=== PATIENT | female | born 1995 | race Caucasian/White ===

== ENCOUNTER 2016-10-17 18:34 | Emergency (ER) | payer OTHER ==
[~2016-10-17] VITALS: Ht 175.3 cm; Wt 100.4 kg
[~2016-10-17 18:34] MED LIST: ACET-1600 PO; HYDR-3240 PO; IBUP-1222 PO; IBUP200C8 PO; ONDA4TAB7 PO; OXYC-302 PO; PREN-3 PO
[2016-10-17 18:39] VITALS: BP 144/83
[2016-10-17] MEDS ORDERED: KETOROLAC 30 MG/1 ML IM ONE (19:00)
[2016-10-17] MEDS ORDERED: DEXAMETHASONE 4 MG TABLET PO STA (19:22)
== END 2016-10-17 19:46 | disposition home or self-care (01) ==
LOC: ED 19:33
DX: J20.8 Acute bronchitis due to other specified organisms (principal); J02.8 Acute pharyngitis due to other specified organisms; G43.909 Migraine, unspecified, not intractable, without status migrainosus
CPT/HCPCS: 71020; 93005; 96372; 99284; J1885

== ENCOUNTER 2016-11-15 16:34 | Emergency (ER) | payer OTHER ==
[~2016-11-15] VITALS: Ht 172.7 cm; Wt 103.5 kg
[2016-11-15] MEDS ORDERED: MORPHINE SULFATE 4 MG/ML, 1ML IVPush PRN (17:00)
[2016-11-15] MEDS ORDERED: ONDANSETRON 2MG/ML, 2ML IVPush ONE (17:00)
[2016-11-15] MEDS ORDERED: SODIUM CHLORIDE FLUSH 10ML SYR IVF ONE (17:00)
[2016-11-15] MEDS ORDERED: SODIUM CHLORIDE 0.9% 1,000ML IVBOLUS ONE (17:00)
[2016-11-15] MEDS ORDERED: ONDANSETRON 2MG/ML, 2ML ONE (17:11)
[2016-11-15] MEDS ORDERED: MORPHINE SULFATE 4 MG/ML, 1ML ONE (17:11)
[2016-11-15 17:49] LABS: BLOOD UREA NITROGEN 10 mg/dL (7-18)
[2016-11-15] MEDS ORDERED: FAMOTIDINE 20 MG/2 ML ONE (18:48)
[2016-11-15] MEDS ORDERED: LORazepam 2 MG/ML, 1ML ONE (19:15)
[2016-11-15] MEDS ORDERED: LORazepam 2 MG/ML, 1ML IVPush ONE (19:30)
[2016-11-15] MEDS ORDERED: FAMOTIDINE 20 MG/2 ML IVPush ONE (20:00)
[2016-11-15 20:18] LABS: GLUCOSE, CSF 49 mg/dL (40-80)
[2016-11-15 21:33] VITALS: BP 117/70
== END 2016-11-15 21:38 | disposition home or self-care (01) ==
LOC: ED 21:28
DX: R50.9 Fever, unspecified (principal); B34.9 Viral infection, unspecified; G43.909 Migraine, unspecified, not intractable, without status migrainosus; Z90.49 Acquired absence of other specified parts of digestive tract
CPT/HCPCS: 36415; 62270; 70450; 80048; 82040; 82945; 84157; 85025; 87070; 87205; 87252; 89051; 96361; 96374; 96375; 99285; J2060; J2405; J7030; S0028

== ENCOUNTER 2017-04-11 13:16 | Emergency (ER) | payer OTHER ==
[~2017-04-11] VITALS: Ht 172.7 cm; Wt 107.0 kg
[2017-04-11 13:20] VITALS: BP 142/85
[2017-04-11] MEDS ORDERED: LORazepam 2 MG/ML, 1ML IVPush STA (13:38)
[2017-04-11] MEDS ORDERED: MORPHINE SULFATE 4 MG/ML, 1ML ONE (13:44)
[2017-04-11] MEDS ORDERED: LORazepam 2 MG/ML, 1ML ONE (13:45)
[2017-04-11] MEDS ORDERED: SODIUM CHLORIDE 0.9% 1,000ML IVBOLUS ONE (14:00)
[2017-04-11] MEDS ORDERED: MORPHINE SULFATE 4 MG/ML, 1ML IVPush PRN (14:00)
[2017-04-11] MEDS ORDERED: SODIUM CHLORIDE FLUSH 10ML SYR IVF ONE (14:00)
[2017-04-11 14:04] LABS: HEMATOCRIT 44.1 % (34.6-47.8); HEMOGLOBIN 15.3 g/dL (11.7-16.4); WHITE BLOOD COUNT 6.9 x10^3/uL (3.4-10)
[2017-04-11 14:12] LABS: BLOOD UREA NITROGEN 9 mg/dL (7-18)
[2017-04-11] MEDS ORDERED: ACETAMINOPHEN 325 MG TABLET ONE (14:39)
[2017-04-11] MEDS ORDERED: ACETAMINOPHEN 500 MG TABLET ONE (14:42)
[2017-04-11] MEDS ORDERED: ACETAMINOPHEN 325 MG TABLET PO ONE (15:00)
== END 2017-04-11 16:52 | disposition home or self-care (01) ==
LOC: ED 15:13
DX: N92.0 Excessive and frequent menstruation with regular cycle (principal); N92.1 Excessive and frequent menstruation with irregular cycle; R10.2 Pelvic and perineal pain; Z90.49 Acquired absence of other specified parts of digestive tract
CPT/HCPCS: 36415; 76830; 80048; 81001; 82040; 84703; 85025; 87086; 96361; 96374; 96375; 99285; J2060; J7030

== ENCOUNTER 2017-06-20 23:27 | Emergency (ER) | payer OTHER ==
[~2017-06-20] VITALS: Ht 172.7 cm; Wt 109.2 kg
[2017-06-20 23:28] VITALS: BP 129/87
[2017-06-21] MEDS ORDERED: DICYCLOMINE 10 MG/ML, 2ML IM ONE
[2017-06-21] MEDS ORDERED: ONDANSETRON ODT 8 MG PO ONE
[2017-06-21 00:09] LABS: HEMATOCRIT 42.1 % (34.6-47.8); HEMOGLOBIN 14.5 g/dL (11.7-16.4)
[2017-06-21 00:21] LABS: ASPARTATE AMINO TRANSFERASE 14 U/L (15-37); BLOOD UREA NITROGEN 8 mg/dL (7-18)
== END 2017-06-21 01:12 | disposition home or self-care (01) ==
LOC: ED 06-21 00:12
DX: R10.13 Epigastric pain (principal); R11.2 Nausea with vomiting, unspecified; R19.7 Diarrhea, unspecified; G43.909 Migraine, unspecified, not intractable, without status migrainosus; Z90.49 Acquired absence of other specified parts of digestive tract
CPT/HCPCS: 36415; 80053; 80307; 81001; 83690; 84703; 85025; 87086; 96372; 99284; J0500; Q0162; G0479

== ENCOUNTER 2017-06-26 22:53 | Inpatient (IN) | payer OTHER ==
[~2017-06-26] VITALS: Ht 172.7 cm; Wt 105.3 kg
[2017-06-26 23:29] LABS: HEMATOCRIT 39.8 % (34.6-47.8); HEMOGLOBIN 13.7 g/dL (11.7-16.4); WHITE BLOOD COUNT 6.5 x10^3/uL (3.4-10)
[2017-06-26] MEDS ORDERED: CHARCOAL/SORBITOL 50 GM/240 ML PO ONE (23:30)
[2017-06-26 23:41] LABS: ASPARTATE AMINO TRANSFERASE 16 U/L (15-37); BLOOD UREA NITROGEN 10 mg/dL (7-18)
[2017-06-26] MEDS ORDERED: CHARCOAL/SORBITOL 50 GM/240 ML ONE (23:45)
[2017-06-26 23:52] LABS: ACETAMINOPHEN 183 mcg/mL (10-30)
[2017-06-27 00:07] LABS: DAU SCREEN DISCLAIMER
[2017-06-27] MEDS ORDERED: ACETYLCYSTEINE IV ONE ×4 (01:00→07:00)
[2017-06-27] MEDS ORDERED: DEXTROSE 5% IV ONE ×4 (01:00→07:00)
[2017-06-27] MEDS ORDERED: ONDANSETRON 2MG/ML, 2ML IVPush ONE (01:00)
[2017-06-27] MEDS ORDERED: ONDANSETRON 2MG/ML, 2ML IVPush PRN (02:00)
[2017-06-27] MEDS ORDERED: METOCLOPRAMIDE 5 MG/ML, 2ML IVPush PRN (02:00)
[2017-06-27] MEDS: SODIUM CHLORIDE 0.9% 1,000 ML IV SCH ×4 (03:08→23:22)
[2017-06-27 08:03] VITALS: BP 129/80
[2017-06-27] MEDS: FAMOTIDINE 20 MG/2 ML IVPush SCH ×2 (09:32→20:48)
[2017-06-27] MEDS: HYDROmorphone 2 MG/ML, 1ML IVPush PRN ×2 (09:43→15:39)
[2017-06-27 13:21] VITALS: BP 134/91
[2017-06-27 19:58] VITALS: BP 114/67
[2017-06-27] MEDS: BUTALB/APAP/CAFFEINE 50MG/325MG/40MG PO PRN (20:48)
[2017-06-28] MEDS: LORazepam 2 MG/ML, 1ML IVPush PRN ×2 (00:35→15:50)
[2017-06-28 01:30] VITALS: BP 132/75
[2017-06-28 05:49] LABS: BLOOD UREA NITROGEN 4 mg/dL (7-18)
[2017-06-28] MEDS: SODIUM CHLORIDE 0.9% 1,000 ML IV SCH ×2 (05:55→12:35)
[2017-06-28 06:01] LABS: ASPARTATE AMINO TRANSFERASE 13 U/L (15-37)
[2017-06-28 06:05] LABS: HEMATOCRIT 33.9 % (34.6-47.8); WHITE BLOOD COUNT 4.6 x10^3/uL (3.4-10)
[2017-06-28 07:00] VITALS: BP_SYST 106; BP_SYST 113; BP_DIAS 61; BP_DIAS 70
[2017-06-28] MEDS: FAMOTIDINE 20 MG TABLET PO SCH ×2 (09:17→19:41)
[2017-06-28] MEDS: BUTALB/APAP/CAFFEINE 50MG/325MG/40MG PO PRN (10:08)
[2017-06-28 14:26] VITALS: BP 145/83
[2017-06-28] MEDS ORDERED: POTASSIUM CHLORIDE 20 MEQ TAB.ER.PRT PO ONE (15:00)
[2017-06-28 20:00] VITALS: BP 118/75
[2017-06-28] MEDS ORDERED: IBUPROFEN 200 MG TABLET PO PRN (22:00)
[2017-06-29 02:00] VITALS: BP 108/72
[2017-06-29 06:09] LABS: BLOOD UREA NITROGEN 6 mg/dL (7-18)
[2017-06-29 06:15] LABS: ASPARTATE AMINO TRANSFERASE 10 U/L (15-37)
[2017-06-29] MEDS ORDERED: POTASSIUM CHLORIDE 20 MEQ TAB.ER.PRT PO ONE (07:00)
[2017-06-29 07:24] VITALS: BP 110/75
[2017-06-29] MEDS: FAMOTIDINE 20 MG TABLET PO SCH (09:20)
[2017-06-29] MEDS ORDERED: LORazepam 1MG TABLET PO PRN (13:00)
== END 2017-06-29 18:24 | DRG 918 ==
LOC: ED 23:31 → EDIP 06-27 01:19 → 4NOR 06-27 01:55 → 2N 06-29 11:16
PROVIDERS: ADMIT Hospitalist; ATTEND Hospitalist
DX: T39.1X2A Poisoning by 4-Aminophenol derivatives, intentional self-harm, initial encounter (principal); E87.6 Hypokalemia; F60.3 Borderline personality disorder; G89.29 Other chronic pain; F32.9 Major depressive disorder, single episode, unspecified; G43.909 Migraine, unspecified, not intractable, without status migrainosus; Z90.49 Acquired absence of other specified parts of digestive tract; Z90.89 Acquired absence of other organs
CPT/HCPCS: 36415; 80053; 80307; 80329; 83735; 84100; 84443; 84703; 85025; 85610; 85730; 93005; 96374; 96375; J0132; J1170; J2405; J7060; J7070; G0479; G0480; J2060; J7030; S0028

== ENCOUNTER 2017-10-08 13:43 | Emergency (ER) | payer OTHER ==
[~2017-10-08] VITALS: Ht 172.7 cm; Wt 108.4 kg
[2017-10-08 14:59] LABS: BASOPHILS # (AUTO) 0.04 x10^3/uL (0-0.1); BASOPHILS % (AUTO) 0 % (0-1); EOSINOPHILS # (AUTO) 0.02 x10^3/uL (0-0.4); EOSINOPHILS % (AUTO) 0 % (1-7); LYMPHOCYTES # (AUTO) 0.98 x10^3/uL (1-3.4); LYMPHOCYTES % (AUTO) 8 % (22-44); MD NO; MEAN CORPUSCULAR HEMOGLOBIN 29.7 pg (27.0-34.8); MEAN CORPUSCULAR HGB CONC 34.2 g/dL (32.4-35.8); MEAN CORPUSCULAR VOLUME 86.8 fL (80-100); MEAN PLATELET VOLUME 7.5 fL (7.4-10.4); MONOCYTES # (AUTO) 0.46 x10^3/uL (0.2-0.8); MONOCYTES % (AUTO) 4 % (2-9); NEUTROPHILS # (AUTO) 11.05 x10^3/uL (1.8-6.8); NEUTROPHILS % (AUTO) 88 % (42-75); PLATELET COUNT 302 x10^3/uL (130-400); RED BLOOD COUNT 4.85 x10^6/uL (3.82-5.3); RED CELL DISTRIBUTION WIDTH 13.2 % (9.6-15.2)
[2017-10-08 15:07] LABS: ALBUMIN 3.9 g/dL (3.4-5.0); ANION GAP 6 mmol/L (5-15); CALCIUM 8.8 mg/dL (8.5-10.1); CHLORIDE 108 mmol/L (98-107); CREATININE 0.69 mg/dL (0.55-1.02)
[2017-10-08] MEDS ORDERED: ONDANSETRON 2MG/ML, 2ML ONE (15:57)
[2017-10-08] MEDS ORDERED: ONDANSETRON 2MG/ML, 2ML IVPush ONE (16:00)
[2017-10-08] MEDS ORDERED: SODIUM CHLORIDE 0.9% 1,000ML IVBOLUS ONE (16:00)
[2017-10-08] MEDS ORDERED: SODIUM CHLORIDE FLUSH 10ML SYR IVF ONE (16:00)
[2017-10-08 17:43] VITALS: BP 107/67
== END 2017-10-08 17:46 | disposition home or self-care (01) ==
LOC: ED 16:29
DX: O21.1 Hyperemesis gravidarum with metabolic disturbance (principal); Z3A.21 21 weeks gestation of pregnancy; G43.909 Migraine, unspecified, not intractable, without status migrainosus; I73.00 Raynaud's syndrome without gangrene; E86.0 Dehydration; O99.352 Diseases of the nervous system complicating pregnancy, second trimester; F32.9 Major depressive disorder, single episode, unspecified; F41.9 Anxiety disorder, unspecified
CPT/HCPCS: 36415; 76801; 80048; 82040; 84702; 85025; 96361; 96374; 99285; J2405; J7030

== ENCOUNTER 2017-10-13 11:54 | Emergency (ER) | payer OTHER ==
[~2017-10-13] VITALS: Ht 172.7 cm; Wt 106.5 kg
[2017-10-13] MEDS ORDERED: ONDANSETRON 2MG/ML, 2ML ONE (12:59)
[2017-10-13] MEDS ORDERED: SODIUM CHLORIDE 0.9% 1,000ML IVBOLUS ONE (13:00)
[2017-10-13] MEDS ORDERED: SODIUM CHLORIDE 0.9% 1,000 ML IV ONE (13:00)
[2017-10-13] MEDS ORDERED: ONDANSETRON ODT 4 MG PO ONE (13:00)
[2017-10-13] MEDS ORDERED: SODIUM CHLORIDE FLUSH 10ML SYR IVF ONE (13:30)
[2017-10-13] MEDS ORDERED: METOCLOPRAMIDE 5 MG/ML, 2ML IVPush ONE (13:30)
[2017-10-13] MEDS ORDERED: METOCLOPRAMIDE 5 MG/ML, 2ML ONE (13:31)
[2017-10-13 13:36] LABS: BASOPHILS # (AUTO) 0.07 x10^3/uL (0-0.1); BASOPHILS % (AUTO) 1 % (0-1); EOSINOPHILS # (AUTO) 0.03 x10^3/uL (0-0.4); EOSINOPHILS % (AUTO) 0 % (1-7); LYMPHOCYTES # (AUTO) 1.68 x10^3/uL (1-3.4); LYMPHOCYTES % (AUTO) 18 % (22-44); MD NO; MEAN CORPUSCULAR HGB CONC 33.9 g/dL (32.4-35.8); MEAN CORPUSCULAR VOLUME 85.4 fL (80-100); MEAN PLATELET VOLUME 7.3 fL (7.4-10.4); MONOCYTES # (AUTO) 0.52 x10^3/uL (0.2-0.8); MONOCYTES % (AUTO) 6 % (2-9); NEUTROPHILS # (AUTO) 6.88 x10^3/uL (1.8-6.8); NEUTROPHILS % (AUTO) 75 % (42-75); PLATELET COUNT 342 x10^3/uL (130-400); RED BLOOD COUNT 4.95 x10^6/uL (3.82-5.3); RED CELL DISTRIBUTION WIDTH 12.6 % (9.6-15.2)
[2017-10-13 13:43] LABS: CULTURE INDICATED? YES; MICROSCOPIC INDICATED
[2017-10-13 13:46] LABS: ALANINE AMINOTRANSFERASE 80 U/L (12-78); ALBUMIN 3.9 g/dL (3.4-5.0); ANION GAP 9 mmol/L (5-15); CALCIUM 8.9 mg/dL (8.5-10.1); CHLORIDE 105 mmol/L (98-107)
[2017-10-13 14:04] LABS: ALKALINE PHOSPHATASE 69 U/L (45-117); BILIRUBIN,TOTAL 0.8 mg/dL (0.2-1.0); CREATININE 0.77 mg/dL (0.55-1.02); TOTAL PROTEIN 7.9 g/dL (6.4-8.2)
[2017-10-13 15:29] VITALS: BP 106/56
== END 2017-10-13 15:31 | disposition home or self-care (01) ==
LOC: ED 14:33
DX: O21.0 Mild hyperemesis gravidarum (principal); O26.892 Other specified pregnancy related conditions, second trimester; O99.282 Endocrine, nutritional and metabolic diseases complicating pregnancy, second trimester; O99.352 Diseases of the nervous system complicating pregnancy, second trimester; O99.412 Diseases of the circulatory system complicating pregnancy, second trimester; Z3A.21 21 weeks gestation of pregnancy; Z90.49 Acquired absence of other specified parts of digestive tract; I73.00 Raynaud's syndrome without gangrene; G43.909 Migraine, unspecified, not intractable, without status migrainosus; E86.9 Volume depletion, unspecified
CPT/HCPCS: 36415; 76801; 80053; 81001; 84702; 85025; 87086; 93005; 96361; 96374; 99285; J2765; J7030

== ENCOUNTER 2017-10-30 08:55 | Emergency (ER) | payer OTHER ==
[~2017-10-30] VITALS: Ht 172.7 cm; Wt 103.0 kg
[2017-10-30] MEDS ORDERED: SODIUM CHLORIDE 0.9% 1,000ML IVBOLUS ONE (09:30)
[2017-10-30] MEDS ORDERED: SODIUM CHLORIDE FLUSH 10ML SYR IVF ONE (09:30)
[2017-10-30] MEDS ORDERED: METOCLOPRAMIDE 5 MG/ML, 2ML IVPush ONE (09:30)
[2017-10-30 09:42] LABS: BASOPHILS # (AUTO) 0.03 x10^3/uL (0-0.1); BASOPHILS % (AUTO) 0 % (0-1); EOSINOPHILS # (AUTO) 0.06 x10^3/uL (0-0.4); EOSINOPHILS % (AUTO) 1 % (1-7); LYMPHOCYTES # (AUTO) 1.26 x10^3/uL (1-3.4); LYMPHOCYTES % (AUTO) 15 % (22-44); MD NO; MEAN CORPUSCULAR HEMOGLOBIN 29.6 pg (27.0-34.8); MEAN CORPUSCULAR HGB CONC 34.5 g/dL (32.4-35.8); MEAN CORPUSCULAR VOLUME 85.8 fL (80-100); MEAN PLATELET VOLUME 7.4 fL (7.4-10.4); MONOCYTES % (AUTO) 4 % (2-9); NEUTROPHILS # (AUTO) 6.78 x10^3/uL (1.8-6.8); NEUTROPHILS % (AUTO) 80 % (42-75); PLATELET COUNT 304 x10^3/uL (130-400); RED BLOOD COUNT 4.78 x10^6/uL (3.82-5.3); RED CELL DISTRIBUTION WIDTH 12.7 % (9.6-15.2)
[2017-10-30 09:51] LABS: ALANINE AMINOTRANSFERASE 32 U/L (12-78); ALBUMIN 3.6 g/dL (3.4-5.0); ANION GAP 11 mmol/L (5-15); CALCIUM 9.2 mg/dL (8.5-10.1); CHLORIDE 105 mmol/L (98-107); CREATININE 0.72 mg/dL (0.55-1.02)
[2017-10-30 09:53] LABS: ALKALINE PHOSPHATASE 66 U/L (45-117); BILIRUBIN,TOTAL 0.7 mg/dL (0.2-1.0); TOTAL PROTEIN 7.8 g/dL (6.4-8.2)
[2017-10-30] MEDS ORDERED: METOCLOPRAMIDE 5 MG/ML, 2ML ONE (10:11)
[2017-10-30 11:33] LABS: CULTURE INDICATED? NO; MICROSCOPIC NOT IND
[2017-10-30 11:55] VITALS: BP 101/58
== END 2017-10-30 11:56 | disposition home or self-care (01) ==
LOC: ED 10:56
DX: O26.891 Other specified pregnancy related conditions, first trimester (principal); O21.9 Vomiting of pregnancy, unspecified; O21.0 Mild hyperemesis gravidarum; Z3A.09 9 weeks gestation of pregnancy; R55 Syncope and collapse
CPT/HCPCS: 36415; 80053; 81003; 85025; 93005; 96361; 96374; 99285; J2765; J7030

== ENCOUNTER 2017-12-25 22:44 | Emergency (ER) | payer OTHER ==
[~2017-12-25] VITALS: Ht 172.7 cm; Wt 108.9 kg
[~2017-12-25 22:44] MED LIST changes: +ONDA4TAB10 PO; +PREN1TAB60 PO
[2017-12-25] MEDS ORDERED: ONDANSETRON 2MG/ML, 2ML ONE (23:12)
[2017-12-25 23:25] VITALS: BP 107/54
[2017-12-25] MEDS ORDERED: SODIUM CHLORIDE 0.9% 1,000ML IVBOLUS ONE (23:30)
[2017-12-25] MEDS ORDERED: ONDANSETRON 2MG/ML, 2ML IVPush ONE (23:30)
[2017-12-25 23:36] LABS: ANION GAP 10 mmol/L (5-15); CALCIUM 8.7 mg/dL (8.5-10.1); CHLORIDE 110 mmol/L (98-107); CREATININE 0.59 mg/dL (0.55-1.02)
[2017-12-25 23:39] LABS: MICROSCOPIC NOT IND
[2017-12-25 23:45] LABS: CULTURE INDICATED? NO
== END 2017-12-26 00:08 | disposition home or self-care (01) ==
LOC: ED 23:52
DX: O26.892 Other specified pregnancy related conditions, second trimester (principal); Z3A.18 18 weeks gestation of pregnancy; R11.2 Nausea with vomiting, unspecified; E87.6 Hypokalemia; G43.909 Migraine, unspecified, not intractable, without status migrainosus
CPT/HCPCS: 36415; 80048; 81003; 96374; 99284; J2405; J7030

== ENCOUNTER 2018-02-13 06:48 | Outpatient (CLI) | payer OTHER ==
[~2018-02-13] VITALS: Ht 172.7 cm; Wt 103.0 kg
[2018-02-13] MEDS ORDERED: ONDANSETRON 2MG/ML, 2ML ONE (07:07)
[2018-02-13 07:17] LABS: MICROSCOPIC INDICATED
[2018-02-13] MEDS ORDERED: D5%-LACTATED RINGERS 1,000 ML IV SCH (07:30)
[2018-02-13] MEDS ORDERED: ONDANSETRON 2MG/ML, 2ML IVPush ONE (07:30)
[2018-02-13 07:59] LABS: ALBUMIN 2.7 g/dL (3.4-5.0); ANION GAP 12 mmol/L (5-15); CALCIUM 8.1 mg/dL (8.5-10.1); CHLORIDE 108 mmol/L (98-107)
[2018-02-13 08:02] LABS: ALANINE AMINOTRANSFERASE 18 U/L (12-78); ALKALINE PHOSPHATASE 71 U/L (45-117); BILIRUBIN,TOTAL 0.6 mg/dL (0.2-1.0); CREATININE 0.49 mg/dL (0.55-1.02); TOTAL PROTEIN 6.6 g/dL (6.4-8.2)
== END 2018-02-13 09:52 | disposition home or self-care (01) ==
LOC: LDOP 06:48
PROVIDERS: ATTEND Obstetrics & Gynecology Gynecology
DX: O21.2 Late vomiting of pregnancy (principal); O26.892 Other specified pregnancy related conditions, second trimester; O62.9 Abnormality of forces of labor, unspecified; Z3A.27 27 weeks gestation of pregnancy
CPT/HCPCS: 36415; 59025; 80053; 81001; 87086; 96360; 96366; 96374; 99201; J2405; J7121; G0463

== ENCOUNTER 2018-02-13 20:12 | Outpatient (CLI) | payer OTHER ==
[~2018-02-13] VITALS: Ht 172.7 cm; Wt 105.0 kg
[2018-02-13 20:46] LABS: BASOPHILS % (AUTO) 0 % (0-1); EOSINOPHILS # (AUTO) 0.02 x10^3/uL (0-0.4); EOSINOPHILS % (AUTO) 0 % (1-7); LYMPHOCYTES # (AUTO) 0.54 x10^3/uL (1-3.4); LYMPHOCYTES % (AUTO) 8 % (22-44); MD NO; MEAN CORPUSCULAR HGB CONC 33.7 g/dL (32.4-35.8); MEAN CORPUSCULAR VOLUME 89.2 fL (80-100); MEAN PLATELET VOLUME 7.3 fL (7.4-10.4); MONOCYTES # (AUTO) 0.31 x10^3/uL (0.2-0.8); MONOCYTES % (AUTO) 5 % (2-9); NEUTROPHILS # (AUTO) 5.89 x10^3/uL (1.8-6.8); NEUTROPHILS % (AUTO) 87 % (42-75); PLATELET COUNT 265 x10^3/uL (130-400); RED BLOOD COUNT 4.12 x10^6/uL (3.82-5.3)
[2018-02-13 20:53] LABS: MICROSCOPIC INDICATED
[2018-02-13 20:54] LABS: ALBUMIN 2.8 g/dL (3.4-5.0); ANION GAP 7 mmol/L (5-15); CALCIUM 8.4 mg/dL (8.5-10.1); CHLORIDE 107 mmol/L (98-107)
[2018-02-13 20:57] LABS: ALANINE AMINOTRANSFERASE 19 U/L (12-78); ALKALINE PHOSPHATASE 73 U/L (45-117); BILIRUBIN,TOTAL 0.5 mg/dL (0.2-1.0); CREATININE 0.51 mg/dL (0.55-1.02); TOTAL PROTEIN 6.8 g/dL (6.4-8.2)
[2018-02-13] MEDS ORDERED: ONDANSETRON 2MG/ML, 2ML ONE (21:09)
[2018-02-13] MEDS ORDERED: ONDANSETRON 2MG/ML, 2ML IVPush PRN (21:30)
[2018-02-13] MEDS ORDERED: D5%-LACTATED RINGERS 1,000 ML IV SCH ×2 (21:30→21:51)
[2018-02-13] MEDS ORDERED: LOPERAMIDE 2 MG CAPSULE PO ONE (21:30)
[2018-02-13 21:55] LABS: CLOSTRIDIUM DIFFICILE ANTIGEN NEGATIVE; CLOSTRIDIUM DIFFICILE TOXIN NEGATIVE (Negative)
== END 2018-02-13 22:35 | disposition home or self-care (01) ==
LOC: LDOP 20:12
PROVIDERS: ATTEND Obstetrics & Gynecology Gynecology
DX: O21.2 Late vomiting of pregnancy (principal); O26.892 Other specified pregnancy related conditions, second trimester; R19.7 Diarrhea, unspecified; Z3A.27 27 weeks gestation of pregnancy
CPT/HCPCS: 36415; 59025; 80053; 81001; 85025; 87086; 87324; 96360; 96361; 96374; 99211; J2405; J7121; G0463

== ENCOUNTER 2018-04-05 10:05 | Emergency (ER) | payer OTHER ==
[~2018-04-05] VITALS: Ht 172.7 cm; Wt 107.0 kg
[2018-04-05] MEDS ORDERED: ACETAMINOPHEN 500 MG TABLET PO ONE (10:30)
[2018-04-05] MEDS ORDERED: ACETAMINOPHEN 500 MG TABLET ONE (10:52)
[2018-04-05 11:49] VITALS: BP 113/57
== END 2018-04-05 11:50 | disposition home or self-care (01) ==
LOC: ED 11:07
DX: R07.89 Other chest pain (principal)
CPT/HCPCS: 71045; 93005; 99284

== ENCOUNTER 2018-04-18 11:03 | Outpatient (CLI) | payer OTHER ==
[~2018-04-18] VITALS: Ht 175.3 cm; Wt 111.3 kg
[2018-04-18 11:18] VITALS: BP 118/66
== END 2018-04-18 12:58 | disposition home or self-care (01) ==
LOC: LDOP 11:03
PROVIDERS: ATTEND Obstetrics & Gynecology Gynecology
DX: O60.03 Preterm labor without delivery, third trimester (principal); O62.9 Abnormality of forces of labor, unspecified; Z3A.37 37 weeks gestation of pregnancy; Z23 Encounter for immunization
CPT/HCPCS: 59025; 90656; 99211; G0463

== ENCOUNTER 2018-04-28 19:25 | Outpatient (CLI) | payer OTHER ==
[~2018-04-28] VITALS: Ht 172.7 cm; Wt 113.6 kg
[2018-04-28 19:38] VITALS: BP 128/65
[2018-04-28] MEDS ORDERED: ZOLPIDEM 5MG TABLET ONE (20:20)
[2018-04-28] MEDS ORDERED: ZOLPIDEM 5MG TABLET PO SCH (21:00)
== END 2018-04-28 20:25 | disposition home or self-care (01) ==
LOC: LDOP 19:25
PROVIDERS: ATTEND Obstetrics & Gynecology Gynecology
DX: O42.92 Full-term premature rupture of membranes, unspecified as to length of time between rupture and onset of labor (principal); Z3A.37 37 weeks gestation of pregnancy
CPT/HCPCS: 59025; 89060; 99211; G0463; Q0114

== ENCOUNTER 2018-05-05 14:13 | Outpatient (CLI) | payer OTHER ==
[~2018-05-05] VITALS: Ht 172.7 cm; Wt 109.0 kg
[2018-05-05 14:31] VITALS: BP 112/62
== END 2018-05-05 15:55 | disposition home or self-care (01) ==
LOC: LDOP 14:13
PROVIDERS: ATTEND Obstetrics & Gynecology Gynecology
DX: O36.8130 Decreased fetal movements, third trimester, not applicable or unspecified (principal); Z3A.38 38 weeks gestation of pregnancy
CPT/HCPCS: 59025; 76819; 99211; G0463

== ENCOUNTER 2018-05-08 07:20 | Outpatient (CLI) | payer OTHER ==
[~2018-05-08] VITALS: Ht 172.7 cm; Wt 119.5 kg
[2018-05-08 08:42] LABS: MICROSCOPIC NOT IND
[2018-05-08 08:50] LABS: BASOPHILS # (AUTO) 0.06 x10^3/uL (0-0.1); BASOPHILS % (AUTO) 1 % (0-1); EOSINOPHILS # (AUTO) 0.07 x10^3/uL (0-0.4); EOSINOPHILS % (AUTO) 1 % (1-7); LYMPHOCYTES # (AUTO) 1.03 x10^3/uL (1-3.4); LYMPHOCYTES % (AUTO) 9 % (22-44); MD NO; MEAN CORPUSCULAR HEMOGLOBIN 29.1 pg (27.0-34.8); MEAN CORPUSCULAR HGB CONC 33.8 g/dL (32.4-35.8); MEAN CORPUSCULAR VOLUME 86.3 fL (80-100); MEAN PLATELET VOLUME 7.4 fL (7.4-10.4); MONOCYTES # (AUTO) 0.51 x10^3/uL (0.2-0.8); MONOCYTES % (AUTO) 5 % (2-9); NEUTROPHILS # (AUTO) 9.46 x10^3/uL (1.8-6.8); NEUTROPHILS % (AUTO) 85 % (42-75); PLATELET COUNT 305 x10^3/uL (130-400); RED BLOOD COUNT 4.29 x10^6/uL (3.82-5.3); RED CELL DISTRIBUTION WIDTH 14.1 % (9.6-15.2)
[2018-05-08] MEDS ORDERED: PLEASE ENTER HEIGHT AND WEIGHT MC SCH (09:00)
[2018-05-08] MEDS ORDERED: MAALOX/HYOSCYAMINE/LIDOCAINE 45 ML BTL PO ONE (09:00)
[2018-05-08 09:02] LABS: ALANINE AMINOTRANSFERASE 15 U/L (12-78); ALBUMIN 2.4 g/dL (3.4-5.0); ANION GAP 10 mmol/L (5-15); CALCIUM 9.3 mg/dL (8.5-10.1); CHLORIDE 109 mmol/L (98-107); CREATININE 0.58 mg/dL (0.55-1.02)
[2018-05-08 09:04] LABS: ALKALINE PHOSPHATASE 137 U/L (45-117); BILIRUBIN,TOTAL 0.4 mg/dL (0.2-1.0); TOTAL PROTEIN 6.4 g/dL (6.4-8.2)
[2018-05-08 09:23] VITALS: BP 121/65
== END 2018-05-08 11:30 | disposition home or self-care (01) ==
LOC: LDOP 07:20
PROVIDERS: ATTEND Obstetrics & Gynecology Gynecology
DX: O42.92 Full-term premature rupture of membranes, unspecified as to length of time between rupture and onset of labor (principal); Z3A.38 38 weeks gestation of pregnancy
CPT/HCPCS: 36415; 59025; 80053; 81003; 83690; 84112; 84550; 85025; 87086; 99211; G0463

== ENCOUNTER 2018-05-15 09:45 | Inpatient (IN) | payer OTHER ==
[~2018-05-15] VITALS: Ht 172.7 cm; Wt 119.1 kg
[2018-05-15] MEDS ORDERED: LACTATED RINGERS 1,000 ML IV SCH ×2 (10:04→10:30)
[2018-05-15] MEDS ORDERED: METOCLOPRAMIDE 5 MG/ML, 2ML IV ONE (10:30)
[2018-05-15] MEDS ORDERED: SODIUM CITRATE/CITRIC ACID 30 ML UDC PO ONE (10:30)
[2018-05-15] MEDS ORDERED: LACTATED RINGERS 1,000 ML IVBOLUS ONE (10:30)
[2018-05-15 10:48] LABS: BASOPHILS # (AUTO) 0.04 x10^3/uL (0-0.1); BASOPHILS % (AUTO) 0 % (0-1); EOSINOPHILS # (AUTO) 0.04 x10^3/uL (0-0.4); EOSINOPHILS % (AUTO) 0 % (1-7); LYMPHOCYTES # (AUTO) 1.62 x10^3/uL (1-3.4); LYMPHOCYTES % (AUTO) 17 % (22-44); MD NO; MEAN CORPUSCULAR HEMOGLOBIN 29.4 pg (27.0-34.8); MEAN CORPUSCULAR HGB CONC 33.9 g/dL (32.4-35.8); MEAN CORPUSCULAR VOLUME 86.8 fL (80-100); MEAN PLATELET VOLUME 7.5 fL (7.4-10.4); MONOCYTES # (AUTO) 0.46 x10^3/uL (0.2-0.8); MONOCYTES % (AUTO) 5 % (2-9); NEUTROPHILS # (AUTO) 7.32 x10^3/uL (1.8-6.8); NEUTROPHILS % (AUTO) 77 % (42-75); PLATELET COUNT 270 x10^3/uL (130-400); RED BLOOD COUNT 4.06 x10^6/uL (3.82-5.3); RED CELL DISTRIBUTION WIDTH 14.4 % (9.6-15.2)
[2018-05-15 11:00] VITALS: BP 138/74
[2018-05-15] MEDS ORDERED: SODIUM CITRATE/CITRIC ACID 30 ML UDC ONE (11:33)
[2018-05-15] MEDS ORDERED: OXYTOCIN 30U/ 0.9% NaCL 500ML 500 ML ONE (11:33)
[2018-05-15] MEDS ORDERED: METOCLOPRAMIDE 5 MG/ML, 2ML ONE (11:33)
[2018-05-15] MEDS ORDERED: NEWBORN KIT ONE (11:33)
[2018-05-15] MEDS ORDERED: FENTANYL PF 100 MCG/2ML ONE (11:36)
[2018-05-15] MEDS ORDERED: KETOROLAC 30 MG/1 ML ONE (11:36)
[2018-05-15] MEDS ORDERED: OXYTOCIN 10 UNITS/ML, 1ML ONE (11:36)
[2018-05-15] MEDS ORDERED: EPHEDRINE 50 MG/ML, 1ML ONE (11:36)
[2018-05-15] MEDS ORDERED: CEFAZOLIN 1,000 MG ONE (11:36)
[2018-05-15] MEDS: OXYTOCIN 30U/ 0.9% NaCL 500ML 500 ML IV SCH ×4 (12:21→22:21)
[2018-05-15] MEDS: LACTATED RINGERS 1,000 ML IV SCH ×4 (12:21→22:21)
[2018-05-15] MEDS ORDERED: DIPH,PERTUSS(ACELL),TET VAC/PF NC IM-VACC PRN (12:30)
[2018-05-15] MEDS ORDERED: morphine SULFATE 10 MG/ML, 1ML IVPush PRN (12:30)
[2018-05-15] MEDS ORDERED: RHOGAM FROM BLOOD BANK 1 NOTE EA IM/IV ONE (12:30)
[2018-05-15] MEDS ORDERED: MEASLES,MUMPS&RUBELLA VACC/PF 0.5 ML SQ-VACC PRN (12:30)
[2018-05-15] MEDS ORDERED: MISOPROSTOL 200 MCG TABLET PR PRN (12:30)
[2018-05-15] MEDS ORDERED: ONDANSETRON 2MG/ML, 2ML IV PRN ×2 (12:30→14:00)
[2018-05-15] MEDS ORDERED: CALCIUM CARBONATE 500 MG TAB.CHEW PO PRN (12:30)
[2018-05-15] MEDS ORDERED: OXYcodone/APAP 5/325MG TABLET PO PRN (12:30)
[2018-05-15] MEDS ORDERED: SIMETHICONE 80 MG CHEW TAB PO PRN (12:30)
[2018-05-15] MEDS ORDERED: DIPHENHYDRAMINE 50 MG/ML, 1ML IVPush PRN (14:00)
[2018-05-15] MEDS ORDERED: FENTANYL PF 100 MCG/2ML IV PRN (14:00)
[2018-05-15] MEDS ORDERED: MORPHINE SULFATE 4 MG/ML, 1ML IVPush PRN (14:00)
[2018-05-15] MEDS ORDERED: PROMETHAZINE 25 MG/ML, 1ML IV PRN (14:00)
[2018-05-15] MEDS ORDERED: MEPERIDINE/PF 25MG/0.5ML IVPush PRN (14:00)
[2018-05-15] MEDS ORDERED: OXYcodone 5 MG/5 ML ORAL.SOL UDC PO PRN (14:00)
[2018-05-15] MEDS ORDERED: OXYcodone IR 5MG TABLET ONE (15:08)
[2018-05-15] MEDS: OXYcodone IR 5MG TABLET PO PRN ×2 (15:09→21:50)
[2018-05-15 16:00] VITALS: BP 118/73
[2018-05-15] MEDS: KETOROLAC 30 MG/1 ML IV SCH ×2 (19:19→19:30)
[2018-05-15 20:00] VITALS: BP 109/65
[2018-05-15] MEDS ORDERED: MEPERIDINE/PF 50 MG/ML IM ONE (21:30)
[2018-05-15 21:33] LABS: BASOPHILS # (AUTO) 0.05 x10^3/uL (0-0.1); BASOPHILS % (AUTO) 0 % (0-1); EOSINOPHILS # (AUTO) 0.01 x10^3/uL (0-0.4); EOSINOPHILS % (AUTO) 0 % (1-7); LYMPHOCYTES % (AUTO) 16 % (22-44); MD NO; MEAN CORPUSCULAR HEMOGLOBIN 29.3 pg (27.0-34.8); MEAN CORPUSCULAR VOLUME 86.2 fL (80-100); MEAN PLATELET VOLUME 7.4 fL (7.4-10.4); MONOCYTES # (AUTO) 0.68 x10^3/uL (0.2-0.8); MONOCYTES % (AUTO) 6 % (2-9); NEUTROPHILS % (AUTO) 78 % (42-75); PLATELET COUNT 230 x10^3/uL (130-400); RED BLOOD COUNT 3.77 x10^6/uL (3.82-5.3); RED CELL DISTRIBUTION WIDTH 14.3 % (9.6-15.2)
[2018-05-15] MEDS ORDERED: MEPERIDINE/PF 50 MG/ML ONE (21:34)
[2018-05-16] VITALS: BP 105/71
[2018-05-16] MEDS: KETOROLAC 30 MG/1 ML IV SCH ×4 (01:36→19:47)
[2018-05-16 04:00] VITALS: BP 112/72
[2018-05-16] MEDS: DOCUSATE 100 MG CAPSULE PO PRN ×3 (04:18→19:50)
[2018-05-16] MEDS: OXYcodone IR 5MG TABLET PO PRN ×5 (04:18→22:02)
[2018-05-16] MEDS: LACTATED RINGERS 1,000 ML IV SCH ×3 (04:21→12:21)
[2018-05-16] MEDS: OXYTOCIN 30U/ 0.9% NaCL 500ML 500 ML IV SCH ×2 (06:04→08:21)
[2018-05-16 07:19] VITALS: BP 115/76
[2018-05-16] MEDS: PRENATAL VIT/IRON/FA 1 EACH TABLET PO SCH (07:40)
[2018-05-16 19:15] VITALS: BP 107/69
[2018-05-17] MEDS: KETOROLAC 30 MG/1 ML IV SCH ×2 (01:58→07:53)
[2018-05-17] MEDS: OXYcodone IR 5MG TABLET PO PRN ×5 (02:06→21:11)
[2018-05-17] MEDS: DOCUSATE 100 MG CAPSULE PO PRN ×2 (07:54→21:11)
[2018-05-17 08:00] VITALS: BP 123/82
[2018-05-17] MEDS: PRENATAL VIT/IRON/FA 1 EACH TABLET PO SCH (09:00)
[2018-05-17] MEDS: IBUPROFEN 600 MG TABLET PO PRN ×2 (15:19→21:11)
[2018-05-17 20:00] VITALS: BP 111/72
[2018-05-18] MEDS: OXYcodone IR 5MG TABLET PO PRN ×3 (01:39→10:41)
[2018-05-18] MEDS: IBUPROFEN 600 MG TABLET PO PRN ×2 (06:20→13:18)
[2018-05-18 07:25] VITALS: BP 118/73
[2018-05-18] MEDS: PRENATAL VIT/IRON/FA 1 EACH TABLET PO SCH (08:48)
[2018-05-18] MEDS: DOCUSATE 100 MG CAPSULE PO PRN (08:49)
[2018-05-18] MEDS ORDERED: OXYC-302 PO (10:48)
[2018-05-18] MEDS ORDERED: IBUP-1222 PO (10:50)
== END 2018-05-18 13:35 | disposition home or self-care (01) | DRG 784 ==
LOC: LDIP 09:45 → 2NW 15:50
PROVIDERS: ADMIT Obstetrics & Gynecology Gynecology; ATTEND Obstetrics & Gynecology Gynecology
PROC: 10D00Z1 Extraction of Products of Conception, Low, Open Approach (ICD-10-PCS; principal; 2018-05-15)
PROC: 0UB70ZZ Excision of Bilateral Fallopian Tubes, Open Approach (ICD-10-PCS; 2018-05-15)
DX: O34.211 Maternal care for low transverse scar from previous cesarean delivery (principal); O99.354 Diseases of the nervous system complicating childbirth; O99.824 Streptococcus B carrier state complicating childbirth; O77.0 Labor and delivery complicated by meconium in amniotic fluid; O69.81X0 Labor and delivery complicated by cord around neck, without compression, not applicable or unspecified; Z30.2 Encounter for sterilization; Z37.0 Single live birth; Z83.3 Family history of diabetes mellitus; Z82.61 Family history of arthritis; Z82.49 Family history of ischemic heart disease and other diseases of the circulatory system; Z90.49 Acquired absence of other specified parts of digestive tract; O99.344 Other mental disorders complicating childbirth; F32.9 Major depressive disorder, single episode, unspecified; G43.909 Migraine, unspecified, not intractable, without status migrainosus; Z91.018 Allergy to other foods
CPT/HCPCS: 36415; 82803; 85025; 86850; 86900; 88302; G0378; J0690; J1885; J2175; J2405; J3010; J2270; J2590; J2765; J7120

== ENCOUNTER 2018-05-29 22:43 | Emergency (ER) | payer OTHER ==
[~2018-05-29] VITALS: Ht 172.7 cm; Wt 113.9 kg
[2018-05-29] MEDS ORDERED: ONDANSETRON 2MG/ML, 2ML ONE (23:26)
[2018-05-29] MEDS ORDERED: MORPHINE SULFATE 4 MG/ML, 1ML ONE (23:27)
[2018-05-29 23:30] LABS: BASOPHILS # (AUTO) 0.03 x10^3/uL (0-0.1); BASOPHILS % (AUTO) 1 % (0-1); EOSINOPHILS # (AUTO) 0.16 x10^3/uL (0-0.4); EOSINOPHILS % (AUTO) 2 % (1-7); LYMPHOCYTES # (AUTO) 2.49 x10^3/uL (1-3.4); LYMPHOCYTES % (AUTO) 37 % (22-44); MD NO; MEAN CORPUSCULAR HEMOGLOBIN 28.6 pg (27.0-34.8); MEAN CORPUSCULAR HGB CONC 33.5 g/dL (32.4-35.8); MEAN CORPUSCULAR VOLUME 85.2 fL (80-100); MEAN PLATELET VOLUME 7.1 fL (7.4-10.4); MONOCYTES # (AUTO) 0.43 x10^3/uL (0.2-0.8); MONOCYTES % (AUTO) 6 % (2-9); NEUTROPHILS # (AUTO) 3.65 x10^3/uL (1.8-6.8); NEUTROPHILS % (AUTO) 54 % (42-75); PLATELET COUNT 358 x10^3/uL (130-400); RED BLOOD COUNT 4.83 x10^6/uL (3.82-5.3); RED CELL DISTRIBUTION WIDTH 13.7 % (9.6-15.2)
[2018-05-29] MEDS ORDERED: MORPHINE SULFATE 4 MG/ML, 1ML IVPush PRN (23:30)
[2018-05-29] MEDS ORDERED: ONDANSETRON 2MG/ML, 2ML IVPush ONE (23:30)
[2018-05-29 23:42] LABS: ALBUMIN 3.3 g/dL (3.4-5.0); ANION GAP 8 mmol/L (5-15); CALCIUM 8.6 mg/dL (8.5-10.1); CHLORIDE 107 mmol/L (98-107); CREATININE 0.84 mg/dL (0.55-1.02)
[2018-05-30] MEDS ORDERED: OMNIPAQUE 350 MG/ML, 100ML BOTTLE ONE (00:02)
[2018-05-30 01:00] LABS: MICROSCOPIC NOT IND
[2018-05-30 01:06] LABS: CULTURE INDICATED? NO
[2018-05-30 01:22] VITALS: BP 111/69
== END 2018-05-30 01:40 | disposition home or self-care (01) ==
LOC: ED 23:17
DX: O99.89 Other specified diseases and conditions complicating pregnancy, childbirth and the puerperium (principal); R11.2 Nausea with vomiting, unspecified; R10.9 Unspecified abdominal pain; R51 Headache; Z90.49 Acquired absence of other specified parts of digestive tract; Z90.89 Acquired absence of other organs
CPT/HCPCS: 36415; 74177; 80048; 81003; 82040; 85025; 87040; 96374; 96375; 99285; J2405; Q9967

== ENCOUNTER 2018-06-13 18:14 | Emergency (ER) | payer OTHER ==
[~2018-06-13] VITALS: Ht 175.3 cm; Wt 114.0 kg
[2018-06-13 18:42] LABS: BASOPHILS # (AUTO) 0.05 x10^3/uL (0-0.1); BASOPHILS % (AUTO) 1 % (0-1); EOSINOPHILS # (AUTO) 0.17 x10^3/uL (0-0.4); EOSINOPHILS % (AUTO) 2 % (1-7); LYMPHOCYTES # (AUTO) 2.48 x10^3/uL (1-3.4); LYMPHOCYTES % (AUTO) 30 % (22-44); MD NO; MEAN CORPUSCULAR HEMOGLOBIN 28.2 pg (27.0-34.8); MEAN CORPUSCULAR HGB CONC 33.7 g/dL (32.4-35.8); MEAN CORPUSCULAR VOLUME 83.6 fL (80-100); MEAN PLATELET VOLUME 7.5 fL (7.4-10.4); MONOCYTES # (AUTO) 0.53 x10^3/uL (0.2-0.8); MONOCYTES % (AUTO) 6 % (2-9); NEUTROPHILS # (AUTO) 5.02 x10^3/uL (1.8-6.8); NEUTROPHILS % (AUTO) 61 % (42-75); PLATELET COUNT 331 x10^3/uL (130-400); RED BLOOD COUNT 5.12 x10^6/uL (3.82-5.3); RED CELL DISTRIBUTION WIDTH 13.6 % (9.6-15.2)
[2018-06-13 18:52] LABS: ALBUMIN 3.6 g/dL (3.4-5.0); ANION GAP 9 mmol/L (5-15); CALCIUM 9.1 mg/dL (8.5-10.1); CHLORIDE 109 mmol/L (98-107); CREATININE 0.85 mg/dL (0.55-1.02)
[2018-06-13] MEDS ORDERED: SODIUM CHLORIDE FLUSH 10ML SYR IVF ONE (19:00)
[2018-06-13] MEDS ORDERED: MORPHINE SULFATE 4 MG/ML, 1ML IVPush PRN (19:00)
[2018-06-13] MEDS ORDERED: MORPHINE SULFATE 4 MG/ML, 1ML ONE (19:02)
[2018-06-13] MEDS ORDERED: OMNIPAQUE 350 MG/ML, 100ML BOTTLE ONE (19:26)
[2018-06-13 20:06] VITALS: BP 143/72
== END 2018-06-13 20:38 | disposition home or self-care (01) ==
LOC: ED 18:58
DX: L03.311 Cellulitis of abdominal wall (principal); F41.1 Generalized anxiety disorder; I73.00 Raynaud's syndrome without gangrene; Z87.440 Personal history of urinary (tract) infections; Z98.890 Other specified postprocedural states; Z90.49 Acquired absence of other specified parts of digestive tract; Z87.19 Personal history of other diseases of the digestive system
CPT/HCPCS: 36415; 72193; 80048; 82040; 85025; 87070; 87205; 96374; 99284; Q9967

== ENCOUNTER 2018-06-15 21:24 | Emergency (ER) | payer OTHER ==
[~2018-06-15] VITALS: Ht 175.3 cm; Wt 113.7 kg
[2018-06-15] MEDS ORDERED: SODIUM CHLORIDE 0.9% 1,000ML IVBOLUS ONE (22:00)
[2018-06-15] MEDS ORDERED: PROCHLORPERAZINE 5 MG/ML, 2ML IVPush ONE (22:00)
[2018-06-15] MEDS ORDERED: ACETAMINOPHEN 500 MG TABLET PO ONE (22:00)
[2018-06-15] MEDS ORDERED: KETOROLAC 30 MG/1 ML IVPush ONE (22:00)
[2018-06-15 22:02] LABS: BASOPHILS # (AUTO) 0.04 x10^3/uL (0-0.1); BASOPHILS % (AUTO) 0 % (0-1); EOSINOPHILS # (AUTO) 0.25 x10^3/uL (0-0.4); EOSINOPHILS % (AUTO) 3 % (1-7); LYMPHOCYTES % (AUTO) 25 % (22-44); MD NO; MEAN CORPUSCULAR HEMOGLOBIN 28.5 pg (27.0-34.8); MEAN CORPUSCULAR HGB CONC 33.8 g/dL (32.4-35.8); MEAN CORPUSCULAR VOLUME 84.3 fL (80-100); MEAN PLATELET VOLUME 7.3 fL (7.4-10.4); MONOCYTES # (AUTO) 0.58 x10^3/uL (0.2-0.8); MONOCYTES % (AUTO) 7 % (2-9); NEUTROPHILS # (AUTO) 5.82 x10^3/uL (1.8-6.8); NEUTROPHILS % (AUTO) 66 % (42-75); PLATELET COUNT 313 x10^3/uL (130-400); RED BLOOD COUNT 4.73 x10^6/uL (3.82-5.3); RED CELL DISTRIBUTION WIDTH 13.6 % (9.6-15.2)
[2018-06-15] MEDS ORDERED: PROCHLORPERAZINE 5 MG/ML, 2ML ONE (22:06)
[2018-06-15] MEDS ORDERED: KETOROLAC 30 MG/1 ML ONE (22:06)
[2018-06-15] MEDS ORDERED: ACETAMINOPHEN 500 MG TABLET ONE (22:06)
[2018-06-15 22:12] LABS: ALANINE AMINOTRANSFERASE 27 U/L (12-78); ALBUMIN 3.5 g/dL (3.4-5.0); ANION GAP 6 mmol/L (5-15); CALCIUM 9.1 mg/dL (8.5-10.1); CHLORIDE 108 mmol/L (98-107); CREATININE 0.78 mg/dL (0.55-1.02)
[2018-06-15 22:14] LABS: ALKALINE PHOSPHATASE 87 U/L (45-117); BILIRUBIN,TOTAL 0.2 mg/dL (0.2-1.0); TOTAL PROTEIN 7.4 g/dL (6.4-8.2)
[2018-06-15 22:57] LABS: MICROSCOPIC AUTO
[2018-06-15 22:58] LABS: CULTURE INDICATED? NO
[2018-06-15 23:36] VITALS: BP 112/67
== END 2018-06-16 00:27 | disposition home or self-care (01) ==
LOC: ED 22:55
DX: G44.211 Episodic tension-type headache, intractable (principal); Z87.891 Personal history of nicotine dependence; F41.1 Generalized anxiety disorder
CPT/HCPCS: 36415; 70450; 80053; 81001; 85025; 96361; 96374; 96375; 99284; J0780; J1885; J7030

== ENCOUNTER 2018-08-14 19:54 | Emergency (ER) | payer OTHER ==
[~2018-08-14] VITALS: Ht 175.3 cm; Wt 115.0 kg
[2018-08-14 20:05] VITALS: BP 128/68
--- NOTE | 2018-08-14 20:50 | NUR ---
PT TO ROOM FROM LOBBY AT THIS TIME.
[2018-08-14 20:56] LABS: BASOPHILS # (AUTO) 0.03 x10^3/uL (0-0.1); BASOPHILS % (AUTO) 1 % (0-1); EOSINOPHILS % (AUTO) 2 % (1-7); LYMPHOCYTES % (AUTO) 44 % (22-44); MD NO; MEAN CORPUSCULAR HEMOGLOBIN 28.1 pg (27.0-34.8); MEAN CORPUSCULAR VOLUME 82.9 fL (80-100); MEAN PLATELET VOLUME 7.3 fL (7.4-10.4); MONOCYTES # (AUTO) 0.33 x10^3/uL (0.2-0.8); MONOCYTES % (AUTO) 6 % (2-9); NEUTROPHILS # (AUTO) 2.73 x10^3/uL (1.8-6.8); NEUTROPHILS % (AUTO) 48 % (42-75); PLATELET COUNT 323 x10^3/uL (130-400); RED BLOOD COUNT 5.05 x10^6/uL (3.82-5.3); RED CELL DISTRIBUTION WIDTH 14.2 % (9.6-15.2)
[2018-08-14 21:08] LABS: ALBUMIN 3.6 g/dL (3.4-5.0); ANION GAP 6 mmol/L (5-15); CALCIUM 9.2 mg/dL (8.5-10.1); CHLORIDE 110 mmol/L (98-107); CREATININE 0.76 mg/dL (0.55-1.02)
[2018-08-14 21:12] LABS: TROPONIN I < 0.015 ng/mL (0.000-0.045)
== END 2018-08-14 22:38 | disposition home or self-care (01) ==
LOC: ED 22:32
DX: R07.89 Other chest pain (principal); M94.0 Chondrocostal junction syndrome [Tietze]
CPT/HCPCS: 36415; 71045; 80048; 82040; 84484; 85025; 93005; 99284

== ENCOUNTER 2018-12-22 05:38 | Emergency (ER) | payer OTHER ==
[~2018-12-22] VITALS: Ht 175.3 cm; Wt 120.0 kg
[2018-12-22 05:42] VITALS: BP 125/85
--- NOTE | 2018-12-22 05:59 | NUR ---
FIRST CONTACT WITH PT. PT REPORTS SORE THROAT /ABD PAIN/ FEVER /CARTER /ALL GETTING WORSE TODAY. PT'S AOX4. RESPS EVEN AND UNLABORED. EDMD AT BEDSIDE TO EVALUATE AT THIS TIME.
[2018-12-22] MEDS ORDERED: MAALOX/HYOSCYAMINE/LIDOCAINE 45 ML BTL PO ONE (06:00)
[2018-12-22] MEDS ORDERED: KETOROLAC 30 MG/1 ML IM ONE (06:00)
--- NOTE | 2018-12-22 06:01 | NUR ---
PT AMB TO BR AND BACK TO ROOM WITH STEADY GAIT.
[2018-12-22] MEDS ORDERED: KETOROLAC 30 MG/1 ML ONE (06:03)
[2018-12-22] MEDS ORDERED: MAALOX/HYOSCYAMINE/LIDOCAINE 45 ML BTL ONE (06:03)
--- NOTE | 2018-12-22 06:08 | NUR ---
PT MEDICATED PER EMAR. PT TOLERATED WELL.
--- NOTE | 2018-12-22 06:17 | NUR ---
PT AMB TO ROOM FROM XRAY NOW.
[2018-12-22 06:23] LABS: MICROSCOPIC AUTO
[2018-12-22 06:25] LABS: CULTURE INDICATED? YES
--- NOTE | 2018-12-22 06:53 | NUR ---
REPORT GIVEN TO EVELIN SYLVESTER.
--- NOTE | 2018-12-22 07:03 | NUR ---
RECEIVED REPORT FROM MITA SYLVESTER
--- NOTE | 2018-12-22 07:08 | NUR ---
PT DISCHARGED WITH DISCHARGE INSTRUCTIONS AND FOLLOW UP INSTRUCTIONS. PT UP AMBULATORY AND STABLE ON FEET.
== END 2018-12-22 07:10 | disposition home or self-care (01) ==
LOC: ED 06:24
DX: J02.9 Acute pharyngitis, unspecified (principal); G43.909 Migraine, unspecified, not intractable, without status migrainosus
CPT/HCPCS: 71046; 81001; 87081; 87086; 87880; 96372; 99284; J1885; 87147

== ENCOUNTER 2019-02-15 17:31 | Emergency (ER) | payer OTHER ==
[~2019-02-15] VITALS: Ht 175.3 cm; Wt 115.0 kg
[2019-02-15 17:36] VITALS: BP 138/70
--- NOTE | 2019-02-15 18:01 | NUR ---
DR ALANIZ BS FOR EXAM
--- NOTE | 2019-02-15 18:24 | NUR ---
middle finger lf hand dog bite. 6 bite lyon. 02/14/19 around noon. pt states it was her mom's dog. dog is up to date on vax. sister at bedside. covered with a sheet. call light within reach.
[2019-02-15] MEDS ORDERED: AMPICILLIN/SULBACTAM 3 GM in SODIUM CHLORIDE 0.9% 100 ML IV ONE (18:30)
[2019-02-15] MEDS ORDERED: SODIUM CHLORIDE FLUSH 10ML SYR IVF ONE (18:30)
[2019-02-15] MEDS ORDERED: OXYcodone/APAP 5/325MG TABLET PO ONE (18:30)
[2019-02-15] MEDS ORDERED: ONDANSETRON ODT 4 MG PO ONE (18:30)
[2019-02-15] MEDS ORDERED: IBUPROFEN 600 MG TABLET PO ONE (18:30)
[2019-02-15] MEDS ORDERED: LIDOCAINE-MPF 1%, 5ML INFIL ONE (18:30)
[2019-02-15] MEDS ORDERED: LIDOCAINE-MPF 1%, 2ML ONE (18:34)
[2019-02-15] MEDS ORDERED: ONDANSETRON ODT 4 MG ONE ×2 (18:35→18:46)
[2019-02-15] MEDS ORDERED: OXYcodone/APAP 5/325MG TABLET ONE (18:36)
[2019-02-15] MEDS ORDERED: IBUPROFEN 600 MG TABLET ONE (18:36)
--- NOTE | 2019-02-15 18:40 | NUR ---
at bedside for procedure. rx given. Addendum: 02/15/19 at 2016 by RUY Xylocaine given to MD Lemons for admin.
--- NOTE | 2019-02-15 20:14 | NUR ---
iv abx given, iv removed, Rx given for pain and po abx. pt ambulated to DC desk with sister.
== END 2019-02-15 20:21 | disposition home or self-care (01) ==
LOC: ED 17:58
DX: S61.252A Open bite of right middle finger without damage to nail, initial encounter (principal); L03.011 Cellulitis of right finger; Z90.49 Acquired absence of other specified parts of digestive tract; Z87.891 Personal history of nicotine dependence; Y93.89 Activity, other specified; W54.0XXA Bitten by dog, initial encounter; Y92.89 Other specified places as the place of occurrence of the external cause; Y99.8 Other external cause status
CPT/HCPCS: 10061; 96365; 99284; J0295; Q0162

== ENCOUNTER 2019-02-16 11:48 | Emergency (ER) | payer OTHER ==
[~2019-02-16] VITALS: Ht 172.7 cm; Wt 116.0 kg
[2019-02-16 11:51] VITALS: BP 124/82
== END 2019-02-16 12:57 | disposition home or self-care (01) ==
LOC: ED 12:21
DX: S60.47 Other superficial bite of fingers (principal); W54.0XXD Bitten by dog, subsequent encounter
CPT/HCPCS: 99281

== ENCOUNTER 2019-02-18 19:22 | Inpatient (IN) | payer OTHER ==
[~2019-02-18] VITALS: Ht 172.7 cm; Wt 114.1 kg
[2019-02-21 12:31] VITALS: BP 122/80
== END 2019-02-21 15:15 | disposition home or self-care (01) | DRG 443 ==
LOC: ED 22:20 → EDIP 23:13 → 3NE 02-19 01:04 → DCLOUNGE 02-21 15:05
PROVIDERS: ADMIT Internal Medicine; ATTEND Internal Medicine
DX: B17.9 Acute viral hepatitis, unspecified (principal); F41.1 Generalized anxiety disorder; K21.9 Gastro-esophageal reflux disease without esophagitis; K83.8 Other specified diseases of biliary tract; L03.011 Cellulitis of right finger; Z88.8 Allergy status to other drugs, medicaments and biological substances; Z91.018 Allergy to other foods; T36.0X5A Adverse effect of penicillins, initial encounter; Y92.89 Other specified places as the place of occurrence of the external cause; Z98.51 Tubal ligation status; Z90.49 Acquired absence of other specified parts of digestive tract; Z86.61 Personal history of infections of the central nervous system; Z83.3 Family history of diabetes mellitus
CPT/HCPCS: 36415; 87806; 96374; 99285; J3490; 74181; 76700; 80048; 80053; 80061; 80074; 80076; 80307; 81003; 82140; 82247; 82248; 83516; 83540; 83550; 83690; 84439; 84443; 84703; 85025; 85610; 85730; 86038; 86039; 86308; 86376; 86788; 86789; 87496; G0378; J1650; J2405; G0475; J1200; J2270; J7030

== ENCOUNTER 2019-02-28 14:32 | Emergency (ER) | payer OTHER ==
[~2019-02-28] VITALS: Ht 172.7 cm; Wt 111.4 kg
[2019-02-28 18:43] VITALS: BP 128/73
== END 2019-02-28 18:46 | disposition home or self-care (01) ==
LOC: ED 18:21
DX: R10.11 Right upper quadrant pain (principal); R10.13 Epigastric pain; R11.2 Nausea with vomiting, unspecified; F41.1 Generalized anxiety disorder; F32.9 Major depressive disorder, single episode, unspecified; Z90.49 Acquired absence of other specified parts of digestive tract; Z90.89 Acquired absence of other organs
CPT/HCPCS: 36415; 80053; 83690; 85025; 99283; Q0162; 99284

== ENCOUNTER 2019-05-22 02:19 | Emergency (ER) | payer OTHER ==
[~2019-05-22] VITALS: Ht 172.7 cm; Wt 115.0 kg
--- NOTE | 2019-05-22 02:45 | NUR ---
PT C/O VAGINAL BLEEDING STARTING TODAY. PT REPORTS SOAKING THROUGH 3 SUPER TAMPONS. PT REPORTS CURRENT SEXUAL ACTIVITY WITH 2 PRIOR MISCARRIGES AND 2 PRIOR FULL TERM PREGNANCIES. PT DENIES ABDOMINAL PAIN, PAIN OR BURNING WITH URINATION. PT CONNECTED TO MONITORING, ALL SAFETY MEASURES IN PLACE.
[2019-05-22] MEDS ORDERED: ONDANSETRON 2MG/ML, 2ML ONE (02:54)
[2019-05-22] MEDS ORDERED: MORPHINE SULFATE 4 MG/ML, 1ML ONE (02:54)
[2019-05-22 02:57] LABS: BASOPHILS # (AUTO) 0.05 x10^3/uL (0-0.1); BASOPHILS % (AUTO) 1 % (0-1); EOSINOPHILS % (AUTO) 1 % (1-7); LYMPHOCYTES # (AUTO) 2.11 x10^3/uL (1-3.4); LYMPHOCYTES % (AUTO) 29 % (22-44); MD NO; MEAN CORPUSCULAR HEMOGLOBIN 28.5 pg (27.0-34.8); MEAN CORPUSCULAR HGB CONC 33.6 g/dL (32.4-35.8); MEAN CORPUSCULAR VOLUME 84.9 fL (80-100); MEAN PLATELET VOLUME 7.1 fL (7.4-10.4); MONOCYTES # (AUTO) 0.48 x10^3/uL (0.2-0.8); MONOCYTES % (AUTO) 7 % (2-9); NEUTROPHILS # (AUTO) 4.46 x10^3/uL (1.8-6.8); NEUTROPHILS % (AUTO) 62 % (42-75); PLATELET COUNT 358 x10^3/uL (130-400); RED BLOOD COUNT 4.98 x10^6/uL (3.82-5.3); RED CELL DISTRIBUTION WIDTH 14.1 % (9.6-15.2)
[2019-05-22] MEDS ORDERED: SODIUM CHLORIDE FLUSH 10ML SYR IVF ONE (03:00)
[2019-05-22] MEDS ORDERED: ONDANSETRON 2MG/ML, 2ML IVPush ONE (03:00)
[2019-05-22] MEDS ORDERED: MORPHINE SULFATE 4 MG/ML, 1ML IVPush PRN (03:00)
[2019-05-22 03:04] LABS: ALANINE AMINOTRANSFERASE 20 U/L (12-78); ALBUMIN 3.7 g/dL (3.4-5.0); ANION GAP 7 mmol/L (5-15); CALCIUM 8.7 mg/dL (8.5-10.1); CHLORIDE 108 mmol/L (98-107); CREATININE 1.03 mg/dL (0.55-1.02)
--- NOTE | 2019-05-22 03:05 | NUR ---
PT TO IMAGING.
[2019-05-22 03:09] LABS: ALKALINE PHOSPHATASE 84 U/L (45-117); BILIRUBIN,TOTAL 0.3 mg/dL (0.2-1.0); TOTAL PROTEIN 7.7 g/dL (6.4-8.2)
--- NOTE | 2019-05-22 03:40 | NUR ---
PT MEDICATED PER MAR. URINE SAMPLE COLLECTED AND SENT TO LAB. FRIEND AT FOR SUPPORT. PT GIVEN WARM BLANKET. PT RECONNECTED TO MONITORING, ALL SAFETY MEASURES IN PLACE.
[2019-05-22 04:18] LABS: MICROSCOPIC AUTO
[2019-05-22 04:31] LABS: CULTURE INDICATED? NO
[2019-05-22 04:46] VITALS: BP 112/48
== END 2019-05-22 04:56 | disposition home or self-care (01) ==
LOC: ED 04:55
DX: N92.1 Excessive and frequent menstruation with irregular cycle (principal); R10.30 Lower abdominal pain, unspecified; R11.2 Nausea with vomiting, unspecified; G43.909 Migraine, unspecified, not intractable, without status migrainosus
CPT/HCPCS: 36415; 76830; 80053; 81001; 84703; 85025; 96374; 96375; 99284; J2270; J2405

== ENCOUNTER 2019-06-25 22:50 | Emergency (ER) | payer OTHER ==
[~2019-06-25] VITALS: Ht 172.7 cm; Wt 117.9 kg
[2019-06-25 22:52] VITALS: BP 141/80
[2019-06-25] MEDS ORDERED: hydrOXyzine 50MG TABLET ONE (23:18)
[2019-06-25] MEDS ORDERED: FAMOTIDINE 20 MG TABLET ONE (23:19)
[2019-06-25 23:29] LABS: BASOPHILS # (AUTO) 0.05 x10^3/uL (0-0.1); BASOPHILS % (AUTO) 1 % (0-1); EOSINOPHILS # (AUTO) 0.28 x10^3/uL (0-0.4); EOSINOPHILS % (AUTO) 3 % (1-7); LYMPHOCYTES # (AUTO) 2.72 x10^3/uL (1-3.4); LYMPHOCYTES % (AUTO) 33 % (22-44); MD NO; MEAN CORPUSCULAR HEMOGLOBIN 28.9 pg (27.0-34.8); MEAN CORPUSCULAR HGB CONC 33.4 g/dL (32.4-35.8); MEAN CORPUSCULAR VOLUME 86.6 fL (80-100); MEAN PLATELET VOLUME 7.2 fL (7.4-10.4); MONOCYTES # (AUTO) 0.55 x10^3/uL (0.2-0.8); MONOCYTES % (AUTO) 7 % (2-9); NEUTROPHILS # (AUTO) 4.71 x10^3/uL (1.8-6.8); NEUTROPHILS % (AUTO) 57 % (42-75); PLATELET COUNT 408 x10^3/uL (130-400); RED BLOOD COUNT 5.03 x10^6/uL (3.82-5.3); RED CELL DISTRIBUTION WIDTH 13.4 % (9.6-15.2)
[2019-06-25] MEDS ORDERED: hydrOXyzine 50MG TABLET PO ONE (23:30)
[2019-06-25] MEDS ORDERED: FAMOTIDINE 20 MG TABLET PO ONE (23:30)
[2019-06-25 23:36] LABS: ALANINE AMINOTRANSFERASE 29 U/L (12-78); ANION GAP 6 mmol/L (5-15); CALCIUM 9.5 mg/dL (8.5-10.1); CHLORIDE 109 mmol/L (98-107)
[2019-06-25 23:38] LABS: ALKALINE PHOSPHATASE 84 U/L (45-117); BILIRUBIN,TOTAL 0.4 mg/dL (0.2-1.0); TOTAL PROTEIN 8.2 g/dL (6.4-8.2)
== END 2019-06-26 00:05 | disposition home or self-care (01) ==
LOC: ED 23:15
DX: L50.9 Urticaria, unspecified (principal); Z90.49 Acquired absence of other specified parts of digestive tract
CPT/HCPCS: 36415; 80053; 85025; 93005; 99284; J7512

== ENCOUNTER 2019-08-15 11:34 | Emergency (ER) | payer OTHER ==
[~2019-08-15] VITALS: Ht 172.7 cm; Wt 116.2 kg
--- NOTE | 2019-08-15 12:14 | NUR ---
THIS IS A 24 YO F W/ C/O CP THAT STARTED AT 0530. SOB W/ EXERTION AND DIZZINESS. PAIN RADIATES IN UPPR BACK. NO RELIEF W/ MEDS OR REST. RESP EVEN AND UNLABORED. NADN. PT CONNECTED TO MONITORING. VS STABLE. CONVERSING W/ STAFF, SPEAKING IN FULL SENTENCES. RESTING ON GURNEY W/ CALL LIGHT IN REACH. AWAITING ED EVAL. DENIES FURTHER NEEDS AT THIS TIME.
--- NOTE | 2019-08-15 13:01 | NUR ---
TESTS RESULTED. PT UP FOR RECHECK. RESTING ON [employer] W/ CALL LIGHT IN REACH.
[2019-08-15 13:23] VITALS: BP 107/45
--- NOTE | 2019-08-15 13:24 | NUR ---
PT RESTING ON GURNEY. NADN. ROMAN.
== END 2019-08-15 13:39 | disposition home or self-care (01) ==
LOC: ED 12:05
DX: M94.0 Chondrocostal junction syndrome [Tietze] (principal)
CPT/HCPCS: 71046; 93005; 99283

== ENCOUNTER 2020-11-22 10:31 | Emergency (ER) | payer SELFPAY ==
[~2020-11-22] VITALS: Ht 172.7 cm; Wt 126.5 kg
[~2020-11-22 10:31] MED LIST changes: +HYDR-2214 PO; -HYDR-3240 PO; -OXYC-302 PO; +OXYC1TAB14 PO
[2020-11-22] MEDS ORDERED: ONDANSETRON 2MG/ML, 2ML IVPush ONE (11:30)
[2020-11-22] MEDS ORDERED: CLINDAMYCIN PMX 600MG/50ML 50 ML IV ONE (11:30)
[2020-11-22] MEDS ORDERED: HYDROmorphone 1 MG/ML, 1ML INJ IV ONE (11:30)
[2020-11-22] MEDS ORDERED: CLINDAMYCIN PMX 600MG/50ML 50 ML ONE (11:44)
[2020-11-22] MEDS ORDERED: ONDANSETRON 2MG/ML, 2ML ONE (11:44)
[2020-11-22] MEDS ORDERED: HYDROmorphone 1 MG/ML, 1ML INJ ONE (11:44)
--- NOTE | 2020-11-22 11:56 | NUR ---
PT MEDICATED PER EMAR. VSS, NADN.
--- NOTE | 2020-11-22 12:28 | NUR ---
ALL TESTS RESULTED. PT IS UP FOR RECHECK AT THIS TIME.
--- NOTE | 2020-11-22 12:54 | NUR ---
EMT AT BEDSIDE FOR SPLINT.
[2020-11-22 13:20] VITALS: BP 132/71
--- NOTE | 2020-11-22 13:33 | NUR ---
Patient given discharge instructions and they have confirmed that they understand the instructions. Patient ambulatory with steady gait.
== END 2020-11-22 13:34 | disposition home or self-care (01) ==
LOC: ED 13:30
DX: S41.152A Open bite of left upper arm, initial encounter (principal); W55.01XA Bitten by cat, initial encounter; Y93.89 Activity, other specified; Y92.009 Unspecified place in unspecified non-institutional (private) residence as the place of occurrence of the external cause; Y99.8 Other external cause status
CPT/HCPCS: 29125; 73090; 96365; 96375; 99284; J1170; J2405

== ENCOUNTER 2020-11-23 10:32 | Emergency (ER) | payer SELFPAY ==
[~2020-11-23] VITALS: Ht 172.7 cm; Wt 127.5 kg
--- NOTE | 2020-11-23 10:51 | NUR ---
PT AMBULATORY TO ROOM 11 W/ C/O MIGRAINE CARTER STARTED YESTERDAY. PT HAS N/V, PHOTOPHOBIA, SOUNDS MAKE CARTER WORSE. PT STATES HX MIGRAINE CARTER AFTER MENINGITIS. DENIES FEVER. FULL ROM NECK. STATES OCCIPITAL CARTER. PT RESTING ON GURNEY. NADN. MONITORS APPLIED. VSS. WARM BLANKET PROVIDED.
[2020-11-23] MEDS ORDERED: MAGNESIUM SULFATE PMX 2GM/50ML 50 ML ONE (11:29)
[2020-11-23] MEDS ORDERED: METOCLOPRAMIDE 5 MG/ML, 2ML ONE (11:29)
[2020-11-23] MEDS ORDERED: DIPHENHYDRAMINE 50 MG/ML, 1ML ONE (11:29)
[2020-11-23] MEDS ORDERED: DEXAMETHASONE 4 MG/ML, 1ML ONE (11:29)
--- NOTE | 2020-11-23 11:40 | NUR ---
[facility] V[facility]. MEDICATED PER SEP.
[2020-11-23] MEDS ORDERED: MAGNESIUM SULFATE PMX 2GM/50ML 50 ML IV ONE (12:00)
[2020-11-23] MEDS ORDERED: METOCLOPRAMIDE 5 MG/ML, 2ML IVPush ONE (12:00)
[2020-11-23] MEDS ORDERED: DEXAMETHASONE 4 MG/ML, 1ML IVPush ONE (12:00)
[2020-11-23] MEDS ORDERED: DIPHENHYDRAMINE 50 MG/ML, 1ML IVPush ONE (12:00)
--- NOTE | 2020-11-23 12:27 | NUR ---
PT RESTING ON GURNEY. NADN. ROMAN.
--- NOTE | 2020-11-23 12:44 | NUR ---
PT STATES IMPROVEMENT OF CARTER FROM 03/25 TO 09/22. PT RESTING ON GURNEY. GUEVARA
--- NOTE | 2020-11-23 12:56 | NUR ---
REPORT GIVEN TO NGA TEE.
--- NOTE | 2020-11-23 13:29 | NUR ---
BREAK RN: PT CURRENTLY RESTING ON [employer]. NO ACUTE DISTRESS NOTED. PT AO X 4. SKIN PWD. RESP EVEN AND UNLABORED. PT REPORTS PAIN IS RESOLVED. FRIEND AT BEDSIDE. PT AWARE SHE WILL BE DSICHARGED SHORTLY.
[2020-11-23 13:34] VITALS: BP 125/83
== END 2020-11-23 13:36 | disposition home or self-care (01) ==
LOC: ED 10:57
DX: G43.909 Migraine, unspecified, not intractable, without status migrainosus (principal); Z90.49 Acquired absence of other specified parts of digestive tract; Z90.89 Acquired absence of other organs; Z87.891 Personal history of nicotine dependence
CPT/HCPCS: 96365; 96366; 96375; 99285; J1100; J1200; J2765; J3475